=== PATIENT | male | born 1960 | race Caucasian/White ===

== ENCOUNTER 2025-07-04 18:39 | Emergency (ER) | payer OTHER ==
--- NOTE | 2025-07-04 19:07 | Physician Documentation ---
History of Present Illness ~ Chief Complaint: Knee Pain Stated Complaint: R KNEE PAIN Time Seen by MD: 18:49 HPI This is a 64-year-old gentleman coming to us from the admission for evaluation of a wound on the medial aspect of his right lower extremity that has been present there for three days and cold. He states that he has a known history of HAV and takes Biktarvy. No obvious trigger, trauma provocation. No palliating or aggravating factors. It is painful. Denies any discharge. Does report umbilicated ulcer the center of the wound. He states it is painful to ambulate. Denies any other symptoms. Medication Reconciliation Allergies: Coded Allergies: Penicillins (Verified Allergy, Unknown, 07/04/25) quetiapine (Verified Allergy, Unknown, 07/04/25) trazodone (Verified Allergy, Unknown, 07/04/25) Review of Systems ROS 10 point review of systems was performed and unless noted above in HPI is negative for acute process/complaint. Physical Exam Vital Signs: Temperature: 96.3, Source: Temporal, Heart Rate: 75, Respiratory Rate: 15, BP: 173/81, Pulse Oximetry: 100 Physical Exam GENERAL: Awake, alert, oriented, GCS 15, no apparent distress, non-toxic appearing, answers questions, follows commands appropriately. The gentleman who was examined on EMS gurney, obvious stigmata of homelessness. The gentleman urinated on himself while waiting for assessment. HEENT: Atraumatic, normocephalic, pupils equal, extraocular muscles intact, sclerae anicteric, mucus membranes moist, oropharynx is clear, no stridor. NECK: supple, full active range of motion, trachea midline, no thyromegaly, no lymphadenopathy, no JVD. CARDIOVASCULAR: regular rate/rhythm, no murmurs/gallops/rubs, Pulses are 2+ in all extremities and symmetric. Capillary refill less than 2 seconds. PULMONARY: Nonlabored, good air movement ,no respiratory distress, speaking in full sentences, clear to auscultation bilaterally, no wheezing, no ronchi, no rales, no accessory muscle use. GASTROINTESTINAL: Soft, non-tender, non-distended, normal active bowel sounds, no organomegaly, no pulsatile masses, no CVA tenderness. NEUROLOGIC: Lucid with normal mental status. Normal facial symmetry. Moves all extremities symmetrically and with purpose. No truncal ataxia. Speech is fluid without evidence of dysarthria or aphasia, no focal deficits appreciated. MUSCULOSKELETAL: There is full range of motion of all extremities. There is no joint pain or joint swelling or joint erythema. There is no muscle pain or tenderness or swelling. EXTREMITIES: warm, well-perfused, no cyanosis, no clubbing, no edema, no acute deformities. Skin: warm, dry, no rashes or lesions, no jaundice, no petechiae orpurpura. No ecchymosis. PSYCHIATRIC: Normal affect, normal insight, normal concentration. Focused exam: Right knee is examined. On the medial aspect there is swelling that measures approximately 3 x 8 cm, the center of the swelling and erythema there is a crater ulceration that is a proximally 1.5 cm in diameter. In the center of it there is a small 2 mm necrotic wound versus ulceration that could potentially be tunneling deeper. The wound is located just above the joint line. It is tender to palpation. Calor noted. Full range of motion of right knee. Neurovascularly intact distally to the site of injury. Progress Results/Orders Results/Orders Orders - TIMA OLSON DO Culture Blood (07/04/25 19:03) Ct Lower Extremity (07/04/25 19:03) Completed Orders - TIMA OLSON DO Ethanol (07/04/25 19:03) Drug Screen, Urine (07/04/25 19:03) Electrocardiogram (07/04/25 19:03) Cbc/Diff (07/04/25:) ESR (07/04/25 19:03) C-Reactive Protein (07/04/25 19:03) MG (07/04/25 19:03) CMP (07/04/25 19:03) Hs Troponin I W Calculations (07/04/25 19:03) Lacticsepsis (07/04/25 19:03) Ct Lower Extremity (07/04/25 19:03) Iohexol 300mg/Ml 100ml Inj. (Omnipaque-3 (07/04/25 20:42) Lactic,2hr (07/04/25 21:22) Hs Troponin I W Calculations (07/04/25 21:22) Vital Signs 07/04/25 07/04/25 07/04/2507/04/25 18:52 21:40 21:40 22:24 Temp 96.3 96.3 Pulse 75 79 80 Resp 15 16 18 16 B/P (MAP) 173/81 178/95 (122) 192/97 (128) Pulse Ox 100 99 99 O2 Flow Rate 0 07/04/25 07/05/25 23:22 00:21 Pulse 82 76 Resp 14 16 B/P (MAP) 149/70 (96) 161/99 (119) Pulse Ox 98 99 O2 Flow Rate 0 0 Laboratory Tests Test 07/04/25 19:18 07/04/25 22:38 07/05/25 00:22 White Blood Count 8.7 Red Blood Count 4.55 L Hemoglobin 13.0 L Hematocrit 39.4 L Mean Corpuscular Volume 86.6 Mean Corpuscular Hemoglobin 28.5 Mean Corpuscular Hemoglobin Concent 32.9 L Red Cell Distribution Width 15.4 H Platelet Count 354 Mean Platelet Volume 7.0 L Neutrophils (%) (Auto) 71.7 Lymphocytes (%) (Auto) 17.7 L Monocytes (%) (Auto) 6.3 Eosinophils (%) (Auto) 3.5 Basophils (%) (Auto) 0.8 Neutrophils # (Auto) 6.3 Lymphocytes # (Auto) 1.5 Monocytes # (Auto) 0.5 Eosinophils # (Auto) 0.3 Basophils # (Auto) 0.1 CBC Comment Erythrocyte Sedimentation Rate 74 H Sodium Level 141 Potassium Level 3.8 Chloride Level 105 Carbon Dioxide Level 27.5 Anion Gap 9 Blood Urea Nitrogen 16 Creatinine 1.10 Estimated GFR/1.73 m2 67 BUN/Creatinine Ratio 14.5 Glucose Level 176 H Lactic Acid Level 2.9 H 2.1 H Calcium Level 8.7 Magnesium Level 2.2 Total Bilirubin 0.3 Aspartate Amino Transf (AST/SGOT) 18 Alanine Aminotransferase (ALT/SGPT) 32 Alkaline Phosphatase 111 Troponin I High Sensitivity 8 8 C-Reactive Protein 3.02 H Total Protein 8.1 Albumin 3.0 L Globulin 5.1 H Albumin/Globulin Ratio 0.6 L Chemistry Comments Ethyl Alcohol Level < 10 Troponin I High Sens Percent Delta 0 Troponin I Hi Sens Absolute Change 0 Urine Opiates Screen Negative Urine Methadone Screen Negative Urine Fentanyl Screen Negative Urine Barbiturates Screen Negative Urine Phencyclidine Screen Negative Urine Amphetamines Screen Negative Urine Benzodiazepines Screen Negative Urine Cocaine Screen Negative Urine Cannabinoids Screen Negative Drug Screen Comment Microbiology Date/Time Source Procedure Growth Status 07/04/25 21:00 Blood Arm Right Blood Culture - Preliminary NEGATIVE (LESS THAN 24 HOURS) Resulted EKG/XRAY/CT/US/VASC/MRI EKG : Additional Comment EKG was obtained and interpreted by myself shows normal sinus rhythm of 76, normal CA interval, narrow QRS, no QT prolongation, normal axis, no STEMI. Medical Decision Making Additional information obtaine: old records, other (EMS) Findings Facility Status: ED Holds, RME process The plan was discussed with the patient, who demonstrates clear understanding of the plan and is in agreement with the plan unless otherwise noted in the chart. All questions have been answered, all concerns were addressed unless otherwise documented. I was available throughout their ED stay for frequent reassessment and questions. Differential Diagnoses (considered and possible or likely): [Cellulitis, abscess, including joint infection, possible neoplasm, less likely fracture or dislocation, osteomyelitis had also been considerably.] ??Differential Diagnoses (considered and unlikely, not requiring evaluation currently): [No evidence of traumatic injury] MDM Data Please see [facility] for the following: Independent Historians and external Records Review. Historian: [Patient] Independent Historians: ?[Old records, EMS] Medication Management: [Reviewed medication list] Social History and determinants: [Reviewed] Please see the body of the note for the following: Any independent interpretations of ECG, imaging studies. All vitals signs/haemodynamics, ordered tests were independently reviewed and interpreted by myself. Nursing triage complaint and vitals reviewed, additional nursing notes were reviewed as available and I agree unless otherwise noted or documented in contradiction in the chart Vital Signs: Independently reviewed Labs: Independently interpreted Imaging: Independently interpreted Old Medical Records: Independently reviewed, see HPI for relevant summary and information Pulse Oximetry: [95%] interpreted as [normal on room air] by me [Yard Laborer: [Regular Rate, Regular rhythm, no ectopy, NSR] reviewed and interpreted by me] Additionally notably showing: [Hemodynamics reviewed. The patient isn't febrile, not tachycardic, no evidence of hypotension respiratory distress. CBC normal. White count is 8.7, there are 17% lymphocytes. Absolute lymphocyte count is 1.5. Given history of HAV and typical 40% preponderance of CD4, it does not appear that the gentleman is in aids. ESR is elevated 74. Chemistry shows slightly elevated glucose. Evaluate elevated lactic acid. Elevated CRP. Lactic acid improved. Troponin is negative twice. Toxicology is negative for drugs of abuse or alcohol. Advanced imaging was obtained showing no abscess. There is significant limitation secondary to metallic artifact.] Tests considered but not ordered include: [Not applicable] Social Determinants of Health Impact: Patient was evaluated in [facility], or [facility] [place] access to healthcare due to below par ratio of patient to medical providers. [] Comorbid Conditions Impacting Present Evaluation and Care/Treatment: [Homelessness, HAV] Management Discussions with other Healthcare Providers: [None] Treatment and Disposition Medication Management (Given or considered): [Antibiotics]. See EMR for details Consideration for Hospitalization/Escalation/Deescalation of Care: Admission for observation has been considered, [however the patient is able to tolerate p.o., their symptoms are controlled, they are able to rely on oral medications, and their chief complaint/diagnosis can be managed on outpatient basis.] ?ED Course:?[No clinical deterioration. No evidence of sepsis. He does not appear to be immunocompromised.] ?Shared decision making:?[Patient is hemodynamically stable for discharge home with follow with their primary care provider. [ Outpatient antibiotics will be trialed 1st.] Specific and cautious return precautions provided and discussed with full understanding. Any incidental findings were also discussed and follow up recommendations given. [] All questions answered. Patient/family were able to verbalize back return precautions. Patient/family agree to plan. Copies of imaging and laboratory studies were provided.] Code status:?FULL Please see the full Electronic Medical Record for full details of nursing documentation, medications list, other records of complete past medical history and conditions, vital signs, laboratory studies, and any radiologic study interpretations by radiologists. Portions of this note were completed using [employer] dictation software and as a result there may exist minor errors in spelling. I have reviewed elements of past family and social history and agree as included in note. General Diff Dx:Considerations: Include: Other (See body of main note for differential diagnosis) Knee Diff Dx:Considerations: Include: Abrasion, Arthritis, Contusion, DJD, Gout, Hematoma, Laceration, Meniscus injury, Rheumatoid arthritis, Septic; Unlikely: Fracture-femur, Fracture-fibula, Fracture-patella, Fracture-tibia, Neurovascular injury, Open fracture, Sprain-MCL, Sprain-LCL, Sprain-ACL, Sprain- PCL, Other Ankle Diff Dx:Considerations: Unlikely: Other Foot Diff Dx:Considerations: Unlikely: Other Toe Diff Dx:Considerations: Unlikely: Other Departure Disposition: 01 HOME / SELF CARE / HOMELESS Impression: Primary Impression: Open wound of right knee Additional Impressions: Cellulitis of right knee HIV (human immunodeficiency virus infection) Condition: Stable Discharge Instructions: Cellulitis, Adult Referrals: NO PRIMARY CARE PROVIDER (PCP) Prescriptions Sulfamethoxazole/Trimethoprim (Bactrim Ds Tablet) 800 Mg-160 Mg Tablet 1 TAB PO Q12H for 10 Days, #20 TAB Prov: TIMA OLSON DO 07/05/25 Education Educated: Patient Educated regarding: diagnosis, treatment, prognosis, need for follow up Signature Scribe Signature: No scribe Attestation: The note accurately reflects work and decisions made by me.Tima Olson DO 07/04/25 19:07 TIMA OLSON DO Jul 04, 2025 19:07
--- NOTE | 2025-07-04 19:20 | ELECTROCARDIOGRAPH REPORT ---
[facility] Test Date: 2025-07-04 Test Time: 19:18:51 Pat Name: EDYTA ASHRAF Department: [facility] Patient ID: [facility]-[id number] Room: Gender: M Service Provider: : 1960 Requested By: PEMA OLSON Order Number: [id number] Reading MD: Measurements Intervals [place] Rate: 76 P: 47 IA: 121 QRS: 63 QRSD: 91 T: 45 QT: 417 QTc: 469 Interpretive Statements Sinus rhythm Minimal ST depression, inferior leads Please click the below link to view image of tracing.
[2025-07-04 19:25] LABS: MEAN PLATELET VOLUME 7.0 FL (7.4-10.4); RED CELL DISTRIBUTION WIDTH 15.4 % (11.5-14.5)
[2025-07-04 19:42] LABS: CREATININE 1.10 MG/DL (0.60-1.10); ETHANOL < 10 MG/DL (<10); TOTAL CARBON DIOXIDE 27.5 MMOL/L (24-32); eGFR 67 ML/MIN
[2025-07-04] MEDS ORDERED: iohexol 300mg/ml 100ml inj. ONE (20:42)
[2025-07-04 22:24] VITALS: TEMP 96.3
--- NOTE | 2025-07-05 00:33 | RADIOLOGY REPORT ---
INDICATION: swelling and wound medial aspect of knee COMPARISON: None TECHNIQUE: CT of the right knee was performed with contrast. Volume transverse images were obtained and reconstructed in multiple planes using bone and soft tissue algorithms. Radiation Dose Information: CT Dose: CTDI volume is 7.9 mGy. Dose-length product is 302.75 mGy*cm Contrast: 100 cc Isovue 370. FINDINGS: Significant metallic artifact obscuring assessment of the medial right knee secondary to a left knee arthroplasty. Within these limits, no convincing abscess is seen. No large focal hematoma. No fracture or malalignment. No erosive bony changes. IMPRESSION: Limited assessment due to metallic artifact. No convincing abscess is seen. If this is strongly discordant with the clinical assessment suggest targeted ultrasound. All CT scans at this medical facility are performed using dose modulation techniques as appropriate to a performed exam including the following: Automated exposure control was utilized; adjustment of the MA and/or KV according to patient size; and use of iterative reconstruction technique.
[2025-07-05 00:49] LABS: URINE AMPHETAMINE SCREEN NEGATIVE (Neg); URINE BARBITUATE SCREEN NEGATIVE (Neg); URINE BENZODIAZEPINES SCREEN NEGATIVE (Neg); URINE CANNABINOID SCREEN NEGATIVE (Neg); URINE COCAINE SCREEN NEGATIVE (Neg); URINE METHADONE SCREEN NEGATIVE (Neg); URINE OPIATE SCREEN NEGATIVE (Neg); URINE PHENCYCLIDINE SCREEN NEGATIVE (Neg)
[2025-07-05] MEDS ORDERED: SULF1TAB49 PO (01:10)
[2025-07-05 01:17] VITALS: BP 166/79; PULSE 77; RESP 16; O2SAT 98
== END 2025-07-05 01:57 | disposition home or self-care (01) ==
LOC: ER 18:40
DX: S81.001A Unspecified open wound, right knee, initial encounter (principal); L03.115 Cellulitis of right lower limb; I49.9 Cardiac arrhythmia, unspecified; Z88.0 Allergy status to penicillin; Z88.8 Allergy status to other drugs, medicaments and biological substances; Y93.89 Activity, other specified; Y92.89 Other specified places as the place of occurrence of the external cause; Y99.8 Other external cause status
CPT/HCPCS: 36415; 73701; 80053; 80305; 80320; 83605; 83735; 84484; 85025; 85651; 86140; 87040; 93005; 99284; Q9967; A6590